=== PATIENT | male | born 1980 | race Caucasian/White ===

== ENCOUNTER 2020-04-01 10:36 | Emergency (ER) | payer OTHER, MEDICAID ==
[2020-04-01] MEDS ORDERED: Morphine 10 MG/ML Syringe IM ONE ×2 (10:49→13:10)
[2020-04-01] MEDS ORDERED: Morphine 10 MG/ML SDV ONE (11:21)
--- NOTE | 2020-04-01 11:39 | EDM.PDOC ---
ED HPI GENERAL MEDICAL PROBLEM - General Chief Complaint: Upper Extremity Injury/Pain Stated Complaint: INJURY SHOULDER AT WORK Time Seen by Provider: 04/01/20 10:45 Source of Information: Reports: Patient History Limitations: Reports: No Limitations - History of Present Illness INITIAL COMMENTS - FREE TEXT/NARRATIVE: Patient presents emergency department with right arm pain, difficulty with movement of right elbow, right arm deformity. Patient states he was at work, tripped, fell onto his right arm after reaching out and trying to catch himself during the fall. States no loss of sensation to his right hand, right wrist range of motion intact but there is significant pain and deformity to his right upper arm. Patient believes he is having right arm spasms as well. Denies hitting his head, loss of consciousness. last oral intake liquid was 0930 today no food intake today. - Related Data Allergies Allergy/AdvReac Type Severity Reaction Status Date / Time No Known Allergies Allergy Verified 04/01/20 11:07 Home Meds: Home Meds NK [No Known Home Meds] 04/01/20 [History] Review of Systems - Review of Systems Review Of Systems: Comprehensive ROS is negative, except as noted in HPI. ED EXAM, GENERAL - Physical Exam Exam: See Below Exam Limited By: No Limitations General Appearance: Alert, WD/WN, No Apparent Distress Eye Exam: Bilateral Eye: EOMI Ears: Normal External Exam, Hearing Grossly Normal Throat/Mouth: Normal Inspection, Normal Gums, No Airway Compromise Head: Atraumatic, Normocephalic Respiratory/Chest: No Respiratory Distress, Lungs Clear, No Accessory Muscle Use Cardiovascular: Regular Rate, Rhythm, No Edema, No Murmur Peripheral Pulses: 2+: Radial (L), Radial (R), Posterior Tibial (L), Posterior Tibial (R) Neurological: Alert, Oriented, CN II-XII Intact, Normal Cognition Psychiatric: Normal Affect, Normal Mood Skin Exam: Warm, Dry, Intact ED TRAUMA EXTREMITY PROCEDURES - Joint Reduction Right Other Sedation: Other Pre-Procedure NV Status: Normal Post-Procedure NV Status: Normal Technique: Traction/Counter Traction Number of Attempts: 1 Joint Reduction Complications: No - Splinting Right Upper Extremity Pre-Procedure NV Status: Normal Post-Procedure NV Status: Normal Splint Material: Fiberglass Splint Design: Posterior, Sling & Swathe Applied & Form Fitted By: Provider Provider Post-Splint Application NV Check: NV Status Normal, Good Position Complications: No Course - Orders/Labs/Meds Orders: Active Orders 24 hr Category Date Time Status Immobilizer [RC] ASDIRECTED Care 04/01/20 11:33 Ordered Humerus Rt [CR] Stat Exams 04/01/20 10:47 Ordered Shoulder 1V Rt [CR] Stat Exams 04/01/20 10:50 Ordered Meds: Medications Discontinued Medications Generic Name Dose Route Start Last Admin Trade Name Sharona PRN Reason Stop Dose Admin Morphine Sulfate 5 mg 04/01/20 10:49 04/01/20 11:20 Morphine IM 04/01/20 10:50 5 mg ONETIME ONE Administration Morphine Sulfate Confirm 04/01/20 11:21 04/01/20 11:26 Morphine Administered 04/01/20 11:22 Not Given Dose 10 mg .ROUTE .STK-MED ONE - Radiology Interpretation Free Text/Narrative:: xray of right humerus shows distal fracture with significant displacement. Departure - Departure Time of Disposition: 13:03 Disposition: Home, Self-Care 01 Condition: Fair Clinical Impression: Humeral distal fracture, Fall - Discharge Information *PRESCRIPTION DRUG MONITORING PROGRAM REVIEWED*: No *COPY OF PRESCRIPTION DRUG MONITORING REPORT IN PATIENT PABLO: No Referrals: PCP,None [Primary Care Provider] - Additional Instructions: Dr. Viera in [place] on at 1:20pm - Problem List Review Problem List Initiated/Reviewed/Updated: Yes - My Orders Last 24 Hours: My Active Orders 04/01/20 10:47 Humerus Rt [CR] Stat 04/01/20 10:50 Shoulder 1V Rt [CR] Stat 04/01/20 11:33 Immobilizer [RC] ASDIRECTED - Assessment/Plan Last 24 Hours: My Active Orders 04/01/20 10:47 Humerus Rt [CR] Stat 04/01/20 10:50 Shoulder 1V Rt [CR] Stat 04/01/20 11:33 Immobilizer [RC] ASDIRECTED Assessment:: assessment: fall fracture of distal humerus with displacement. plan: ortho appointment april 03 1:20p in [place] 15 tabs hydrocodone apap 5/325 return to ER in [place] or [place] if fingertips go blue or numb this pt was evaluated in the emergency department in the context of a COVID-19 pandemic. Differentials considered were right shoulder dislocation, right humerus fracture.
--- NOTE | 2020-04-01 22:46 | CR ---
CLINICAL DATA: Right arm deformity. RIGHT HUMERUS: A single oblique view was performed. There is a displaced comminuted fracture through the distal humeral diaphysis with posterolateral displacement of the distal fragment with respect to the proximal fragments. No other acute abnormalities. Job: [id number] MTDD
--- NOTE | 2020-04-01 22:53 | CR ---
DATE OF SERVICE: 04/01/2020 CLINICAL DATA: Right arm pain after fall. RIGHT SHOULDER: A single AP view was performed. 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 No evidence of acute fracture or dislocation; however, this single view is inadequate to exclude fracture or dislocation. No lytic or blastic bone lesions. [id number] [facility]
== END 2020-04-01 13:15 | disposition home or self-care (01) ==
LOC: LB.ED 10:36
DX: S42.301A Unspecified fracture of shaft of humerus, right arm, initial encounter for closed fracture (principal); W01.0XXA Fall on same level from slipping, tripping and stumbling without subsequent striking against object, initial encounter; Y92.89 Other specified places as the place of occurrence of the external cause; Y99.0 Civilian activity done for income or pay
CPT/HCPCS: 25605; 73020; 73060; 96372; 99283; J2270

== ENCOUNTER 2020-04-02 15:34 | Emergency (ER) | payer MEDICAID ==
--- NOTE | 2020-04-02 15:52 | EDM.PDOC ---
ED HPI GENERAL MEDICAL PROBLEM - General Chief Complaint: Trauma Stated Complaint: RIGHT ARM PAIN Time Seen by Provider: 04/02/20 15:40 Source of Information: Reports: Patient History Limitations: Reports: No Limitations - History of Present Illness INITIAL COMMENTS - FREE TEXT/NARRATIVE: Patient fractured humerus yesterday. Given script for 15 Vicodin tablets and patient has used 12 tablets. Requesting further pain medication. Has appt with tomorrow in [facility] with orthopedist Onset: Other (yesterday at time of fall) Duration: Day(s): (one day) Location: Reports: Upper Extremity, Right Quality: Reports: Sharp Severity: Severe Improves with: Reports: Immobilization Worsens with: Reports: Movement (No trouble with feeling or strength of hand) Left Arm Pain Score (Numeric/FACES): 8 - Related Data Allergies Allergy/AdvReac Type Severity Reaction Status Date / Time No Known Allergies Allergy Verified 04/02/20 18:05 Home Meds: Home Meds NK [No Known Home Meds] 04/01/20 [History] Past Medical History Musculoskeletal History: Reports: Fracture Other Musculoskeletal History: Previous fx x2 to LUE Psychiatric History: Reports: Addiction Other Psychiatric History: Uses Marijuana daily Social & Family History - Family History Family Medical History: Noncontributory - Caffeine Use Caffeine Use: Reports: None Review of Systems - Review of Systems Review Of Systems: See Below Constitutional: Denies: Chills, Fever Respiratory: Denies: Shortness of Breath, Cough Cardiovascular: Denies: Chest Pain GI/Abdominal: Denies: Nausea, Vomiting Musculoskeletal: Reports: Arm Pain ED EXAM, GENERAL - Physical Exam Exam: See Below Exam Limited By: No Limitations General Appearance: Alert, WD/WN, Obese Neck: Normal Inspection Respiratory/Chest: No Respiratory Distress GI/Abdominal: Soft, Non-Tender Extremities: Other (Splint and sling in place with sensation and strength an skin color WNL . Hand is warm to touch) Skin Exam: Warm, Dry, Intact Course - Vital Signs Text/Narrative:: Patient treated with Toradol 30 mg IM. Patient to follow up in [place] tomorrow with orthopedist Follow up here or in [place] for worsening symptoms such as numbness, decrease sensation or increasing pain Flexeril 10 mg by mouth 3 x/day as needed for muscle spasms Last Recorded V/S: Last Vital Signs Temp 97.4 F 04/02/20 16:03 Pulse 102 H 04/02/20 16:03 Resp 16 04/02/20 16:03 BP 140/99 H 04/02/20 16:03 Pulse Ox 96 04/02/20 16:03 - Orders/Labs/Meds Meds: Medications Discontinued Medications Generic Name Dose Route Start Last Admin Trade Name Sharona PRN Reason Stop Dose Admin Ketorolac Tromethamine 30 mg 04/02/20 15:47 04/02/20 16:05 Toradol IM 04/02/20 15:48 30 mg ONETIME ONE Administration Ketorolac Tromethamine Confirm 04/02/20 16:09 04/02/20 19:03 Toradol Administered 04/02/20 16:10 Not Given Dose 30 mg .ROUTE .STK-MED ONE Departure - Departure Time of Disposition: 16:05 Disposition: Home, Self-Care 01 Condition: Fair Clinical Impression: Humeral distal fracture Qualifiers: Encounter type: sequela Fracture type: closed Fracture morphology: torus Laterality: right Qualified Code(s): S42.481S - Torus fracture of lower end of right humerus, sequela - Discharge Information *PRESCRIPTION DRUG MONITORING PROGRAM REVIEWED*: No *COPY OF PRESCRIPTION DRUG MONITORING REPORT IN PATIENT PABLO: Not Applicable Instructions: Humerus Fracture Treated With Immobilization, [id number] Referrals: PCP,None [Primary Care Provider] - Forms: ED Department Discharge Additional Instructions: Take flexeril three times a day as needed for muscle spasms Follow up with orthopedist in [place] as scheduled Return for increasing pain , numbness weakness or cold right hand either to [place] or here. [place] is probably more appropriated for any worsening as orthopedist is available.
[2020-04-02] MEDS: Ketorolac 30 MG/ML SDV IM ONE (16:05)
[2020-04-02] MEDS: Ketorolac 30 MG/ML SDV ONE (19:03)
== END 2020-04-02 16:17 | disposition home or self-care (01) ==
LOC: LB.ED 15:34
DX: S42.481A Torus fracture of lower end of right humerus, initial encounter for closed fracture (principal); W01.0XXA Fall on same level from slipping, tripping and stumbling without subsequent striking against object, initial encounter; Y92.89 Other specified places as the place of occurrence of the external cause; Y99.0 Civilian activity done for income or pay
CPT/HCPCS: 96372; 99282; J1885

== ENCOUNTER 2020-04-18 14:21 | Emergency (ER) | payer OTHER, MEDICAID ==
--- NOTE | 2020-05-12 12:22 | EDM.PDOC ---
ED HPI GENERAL MEDICAL PROBLEM - General Chief Complaint: General Stated Complaint: CAST REPAIR Time Seen by Provider: 04/18/20 14:25 Source of Information: Reports: Patient History Limitations: Reports: No Limitations - History of Present Illness INITIAL COMMENTS - FREE TEXT/NARRATIVE: patient had recent surgery on his right humerus. The bulky dressing has become loose and slipped down. Denies any increased pain, fevers, drainage, chyna circulation issues in right arm. He is in ED to have the bulky dressing replaced per his ortho surgeon. Right Upper Arm Pain Score (Numeric/FACES): 2 - Related Data Allergies Allergy/AdvReac Type Severity Reaction Status Date / Time No Known Allergies Allergy Verified 04/02/20 18:05 Home Meds: Home Meds NK [No Known Home Meds] 04/01/20 [History] Past Medical History - Past Health History Medical/Surgical History: Denies Medical/Surgical History Musculoskeletal History: Reports: Fracture Other Musculoskeletal History: Previous fx x2 to LUE Psychiatric History: Reports: Addiction Other Psychiatric History: Uses Marijuana daily Social & Family History - Family History Family Medical History: Noncontributory - Tobacco Use Smoking Status *Q: Never Smoker Second Hand Smoke Exposure: No - Caffeine Use Caffeine Use: Reports: None ED ROS GENERAL - Review of Systems Review Of Systems: See Below Constitutional: Reports: No Symptoms HEENT: Reports: No Symptoms Respiratory: Reports: No Symptoms Cardiovascular: Reports: No Symptoms Musculoskeletal: Reports: Arm Pain Skin: Reports: Wound Neurological: Reports: No Symptoms Psychiatric: Reports: No Symptoms ED EXAM, GENERAL - Physical Exam Exam: See Below Exam Limited By: No Limitations General Appearance: Alert, No Apparent Distress Head: Atraumatic Neck: Normal Inspection, Full Range of Motion Respiratory/Chest: No Respiratory Distress Cardiovascular: Normal Peripheral Pulses, No Edema, No JVD Peripheral Pulses: 3+: Radial (L), Radial (R) Extremities: Normal Capillary Refill, Arm Pain Neurological: Alert, Oriented, No Motor/Sensory Deficits Psychiatric: Normal Affect, Normal Mood Skin Exam: Warm, Dry, Wound/Incision ED GENERAL MEDICAL PROCEDURES - Splinting Right Upper Extremity Pre-procedure NV status: Normal Post-procedure NV status: Normal Splint Type: Other Applied & Form Fitted By: Provider Provider Post-Splint Application NV Check: NV Status Normal Complications: No Course - Vital Signs Last Recorded V/S: Last Vital Signs Temp Pulse 82 04/18/20 14:38 Resp 16 04/18/20 14:38 BP 115/69 04/18/20 14:38 Pulse Ox 98 04/18/20 14:38 Departure - Departure Time of Disposition: 14:50 Disposition: Home, Self-Care 01 Clinical Impression: Dressing change or removal, surgical wound - Discharge Information *PRESCRIPTION DRUG MONITORING PROGRAM REVIEWED*: Not Applicable *COPY OF PRESCRIPTION DRUG MONITORING REPORT IN PATIENT PABLO: Not Applicable Referrals: PCP,None [Primary Care Provider] - Sepsis Event Note (ED) - Evaluation Sepsis Screening Result: No Definite Risk
== END 2020-04-18 14:41 | disposition home or self-care (01) ==
LOC: LB.ED 14:21
DX: Z47.89 Encounter for other orthopedic aftercare (principal)
CPT/HCPCS: 29105; 99282